=== PATIENT | female | born 1960 | race Caucasian/White ===

== ENCOUNTER → 2025-04-19 09:26 | Outpatient (CLI) | payer OTHER, SELFPAY ==
[2025-04-19 09:46] LABS: Add Manual Diff / Slide Review NO; Hematocrit 38.3 % (36-46); Hemoglobin 13.0 g/dL (12.0-16.0); Lymphocytes Absolute Auto 1600 /uL (1100-4500); Mean Corpuscular HGB Conc 34.0 % (30-36); Mean Corpuscular Hemoglobin 34.2 PG (26-34); Mean Corpuscular Volume 100.7 fL (80-100); Platelet Count 230 X10^3/uL (150-400)
[2025-04-19 10:26] LABS: Albumin 4.5 g/dL (3.5-5.0); Blood Urea Nitrogen 23 mg/dL (7-17); Calcium 9.2 mg/dL (8.4-10.2); Carbon Dioxide 26 mmol/L (22-32); Chloride 102 mmol/L (98-107); Estimated Glomerular Filt Rate > 60 mL/min (>60); Glucose 88 mg/dL (70-99); HEMOLYSIS < 15 (0-50); Potassium 4.0 mmol/L (3.4-5.1); Sodium 137 mmol/L (137-145)
[2025-04-19 10:34] LABS: Prealbumin 30.8 mg/dL (17.6-36.0)
[2025-04-19 10:44] LABS: Vitamin D 25 Hydroxy (D3) 68.7 ng/mL (30.0-100.0)
[2025-04-19 12:05] LABS: Hemoglobin A1C% w Est Avg Glu 5.2 % (4.0-6.0)
== END ==
PROVIDERS: Referring Provider Orthopaedic Surgery Adult Reconstructive Orthopaedic Surgery; Visit Provider Orthopaedic Surgery Adult Reconstructive Orthopaedic Surgery
DX: Z01.818 Encounter for other preprocedural examination (principal); Z68.28 Body mass index [BMI] 28.0-28.9, adult; M17.11 Unilateral primary osteoarthritis, right knee
CPT/HCPCS: 36415; 80048; 82040; 82306; 83036; 84134; 85025; 99214